=== PATIENT | female | born 1965 | race Hispanic/Latino ===

== ENCOUNTER → 2017-06-04 | Day surgery (SDC) | payer BC ==
[2017-06-03 08:52] LABS: BASOPHILS % 0.6 % (0.0-1.0); EOSINOPHILS # (AUTO) 0.1 (0.0-0.4); HEMATOCRIT 42.3 % (34.2-44.1); HEMOGLOBIN 14.2 g/dL (12.0-16.0); LYMPHOCYTES # (AUTO) 2.4 (1.0-3.2); LYMPHOCYTES % 51.1 % (18.0-39.1); MEAN CORPUSCULAR HEMOGLOBIN 29.2 pg (28-32); MEAN CORPUSCULAR HGB CONC 33.6 g/dL (31-35); MEAN CORPUSCULAR VOLUME 86.9 fL (81-99); MONOCYTES # (AUTO) 0.3 (0.2-0.8); NEUTROPHILS # (AUTO) 1.8 (2.1-6.9); NEUTROPHILS % 39.1 % (38.7-80.0); PLATELET COUNT 198 x10e3/uL (140-360); RED BLOOD COUNT 4.87 x10e6/uL (3.6-5.1); RED CELL DISTRIBUTION WIDTH 12.4 % (11.7-14.4)
[2017-06-03 09:12] LABS: ANION GAP 14.1 mmol/L (8-16); BLOOD UREA NITROGEN 13 mg/dL (7-26); BUN/CREATININE RATIO 16 (6-25); CALCIUM 9.5 mg/dL (8.4-10.2); CARBON DIOXIDE 27 mmol/L (22-29); CHLORIDE 105 mmol/L (98-107); CREATININE, SERUM 0.83 mg/dL (0.57-1.11); EST GLOMERULAR FILTRATION RATE > 60 ML/MIN (60-); GLUCOSE 97 mg/dL (74-118); POTASSIUM 4.1 mmol/L (3.5-5.1); SODIUM 142 mmol/L (136-145)
--- NOTE | 2017-06-03 09:13 | Diagnostic Imaging Report ---
PROCEDURE: X-RAY CHEST, TWO VIEWS COMPARISON: None. INDICATIONS: PRE OPERATIVE CHEST X-RAY FOR FOOT SURGERY FINDINGS: LUNGS: No consolidations or edema. PLEURA: No effusions or pneumothorax. HEART \T\ MEDIASTINUM: The heart is within normal size-limits. BONES \T\ SOFT TISSUES: No acute findings. CONCLUSION: No acute thoracic abnormality. Omi Wang D.O. Dictated by: Omi Wang D.O. on 06/03/2017 at 9:13 Electronically approved by: Omi Wang D.O. on 06/03/2017 at 9:13
[2017-06-03 10:43] LABS: EOSINOPHILS % (MANUAL) 3 % (0-7); LYMPHOCYTES % (MANUAL) 42 % (19-48); METAMYELOCYTES % (MANUAL) 5 % (0-0); MONOCYTES % (MANUAL) 7 % (3.4-9.0); NEUTROPHILS % (MANUAL) 34 % (40-74)
[2017-06-03 10:44] LABS: PLATELET ESTIMATE ADEQUATE; PLATELET MORPHOLOGY COMMENT FEW LARGE; RBC MORPHOLOGY COMMENT NORMAL
[~2017-06-04] MED LIST: BETAMETHASONE DISODIUM PHOS 6 MG/ML VIAL ONE; BUPIVACAINE HCL 0.5% 10ML MPF VIAL INJ ONE; CEFAZOLIN SOD 1 GM VIAL ONE; CITRACAL PO; DEXAMETHASONE SOD PHOS INJ 4 MG/ML VIAL ONE; FENTANYL CITRATE/PF 100MCG/2 ML INJ ONE; KETOROLAC TROMETHAMINE 30 MG/ML VIAL ONE; LIDOCAINE HCL 2% LOCAL INJ 5 ML SDV VIAL INJ ONE; LOVASTATIN40 MG PO; MIDAZOLAM HCL 2 MG/2 ML VIAL ONE; MULTIVITAMINS1 EAC7 PO; NEOSTIGMINE 1 MG/ML 10ML VIAL ONE; ONDANSETRON HCL INJ 2 MG/ML VIAL ONE; PROPOFOL IV EMULSION 10 MG/ML 20 ML VIAL ONE; SEVOFLURANE INHAL SOLN 250 ML PEN BTL ONE; VITAMIN D
--- OUTSIDE RECORDS SUMMARY | 2017-06-04 06:01 | XMS REPORT | Clinical Summary ---
Author Author [facility] Address Unknown Phone Unavailable Care Team Providers Care Supervisor Grips Name Role Phone Carmita Gonzalez MD PCP Allergies Active Allergy Reactions Severity Noted Date Comments Sulfa (Sulfonamide 08/19/2016 Antibiotics) Current Medications Prescription Sig. Disp. Refills Start End Date Status Date lovastatin (MEVACOR) 40 08/13/19 Active MG tablet 17 vitamin E 1000 UNIT Take 1,000 Units by mouth Active capsule daily. ASCORBIC ACID/VITAMIN Take by mouth. 10/11/19 Discontin E/BIOTIN (HAIR, SKIN, 17 ued NAILS WITH BIOTIN ORAL) Active Problems No known active problems Encounters Date Type Specialty Care Team Description 10/10/2016 Office Visit Gastroenterology Noel Warner MD Fatty liver (Primary Dx) 08/19/2016 Office Visit Gastroenterology Noel Warner MD NAFLD (nonalcoholic fatty liver disease) (Primary Dx); Fatty liver after 06/03/2016 Family History Medical History Relation Name Comments Breast cancer Paternal Socorro Late 80's Grandmother Ledesma Walter's esophagus Sister Belkis Benton Relation Name Status Comments Father Mother Alive Paternal Grandmother Socorro Ledesma Sister Belkis Benton Social History Tobacco Use Types Packs/Day Years Used Date Never Smoker Smokeless Tobacco: Never Used Alcohol Use Drinks/Week oz/Week Comments No Sex Assigned at Date Recorded Not on file Last Filed Vital Signs Vital Sign Reading Time Taken Blood Pressure 108/71 10/10/2016 2:21 PM CDT Pulse 90 10/10/2016 2:21 PM CDT Temperature 37.4 C (99.4 F) 10/10/2016 2:21 PM CDT Respiratory Rate 14 10/10/2016 2:21 PM CDT Oxygen Saturation - - Inhaled Oxygen - - Concentration Weight 75.8 kg (167 lb) 10/10/2016 2:21 PM CDT Height 157.5 cm (5' 2") 10/10/2016 2:21 PM CDT Body Mass Index 30.54 10/10/2016 2:21 PM CDT Plan of Treatment Health Maintenance Due Date Last Done Comments PAP SMEAR 11/28/1987 INFLUENZA VACCINE 11/04/2016 COLONOSCOPY 2016 MAMMOGRAM 2016 Results * BELKIS SCREEN W IFA W REFLEX TO TITER (08/19/2016 9:05 AM) Component Value Ref Range BELKIS screen NEGATIVE NEGATIVE Comment: BELKIS IFA is a first line screen for detecting the presence of up to approximately 150 autoantibodies in various autoimmune diseases. A negative BELKIS IFA result suggests BELKIS-associated autoimmune diseases are not present at this time. Visit Physician FAQs for interpretation of all antibodies in the [place], prevalence, and association with diseases at http://education.Numedeon/ faq/JOG793 Specimen Performing [facility] * Immunoglobulin A (08/19/2016 9:00 AM) Component Value Ref Range IgA 160 81 - 463 mg/dL [facility] * Tissue transglutaminase Ab, IgA (08/19/2016 9:00 AM) Component Value Ref Range Tissue transglutaminase <1 U/mL Ab, IgA Comment: <4 No Antibody Detected > OR=4 Antibody Detected [facility] * INTERPRETATION (REFLEX [facility]) (08/19/2016 9:00 AM) Component Value Ref Range Interpretation SEE NOTE Comment: No serological evidence of celiac disease. tTG IgA may normalize in individuals with celiac disease who maintain a gluten-free diet. Consider HLA DQ2 and DQ8 testing to rule out celiac disease. Celiac disease is extremely rare in the absence of DQ2 or DQ8. Specimen [facility]forming [facility] * PERSONAL FACTORS (08/19/2016 9:00 AM) Component Value Ref Range Height feet NOT GIVEN ft Height inches NOT GIVEN in Weight NOT GIVEN lbs Calculated BMI Not Calc Diabetic NOT GIVEN [facility] * INTERPRETATION (08/19/2016 9:00 AM) Component Value Ref Range Interpretation Comment: Not Calc: NAFLD Fibrosis Score was not calculated because required patient risk factors have not been supplied (e.g. age, weight, height, diabetes status)or because one or more of the tests were not performed. If fasting conditions were not met, use caution when interpreting the glucose test result and the NAFLD Fibrosis Score. Specimen Performing [facility] * NAFLD FIBROSIS SCORE (REFLEX) (08/19/2016 9:00 AM) Component Value Ref Range NAFLD fibrosis score Not Calc Specimen [facility] * Smooth Muscle Antibody with Reflex to Titer (08/19/2016 9:00 AM) Component Value Ref Range Smooth muscle Ab NEGATIVE NEGATIVE Specimen [facility] * Hepatitis C antibody (08/19/2016 9:00 AM) Component Value Ref Range Hepatitis C Ab NON-REACTIVE NON-REACTIVE Signal/cutoff 0.02 <1.00 Specimen [facility] * Alpha-1 antitrypsin level (08/19/2016 9:00 AM) Component Value Ref Range Alpha-1 antitrypsin 122 83 - 199 mg/dL Spec[facility] * Hepatitis A antibody IgM (08/19/2016 9:00 AM) Component Value Ref Range Hepatitis A IgM NON-REACTIVE NON-REACTIVE Spec[facility] * Hepatitis A antibody total (08/19/2016 9:00 AM) Component Value Ref Range Hepatitis A total Ab REACTIVE (A) NON-REACTIVE [facility] * Ceruloplasmin level (08/19/2016 9:00 AM) Component Value Ref Range Ceruloplasmin 21 18 - 53 mg/dL Spec[facility] * Hepatitis B core antibody IgM (08/19/2016 9:00 AM) Component Value Ref Range Hepatitis B core IgM NON-REACTIVE NON-REACTIVE Spec[facility] * Hepatitis B core antibody total (08/19/2016 9:00 AM) Component Value Ref Range Hepatitis B core total Ab NON-REACTIVE NON-REACTIVE [facility] * Anti mitochondria titer (08/19/2016 9:00 AM) Component Value Ref Range Mitochondrial Ab <20.0 U Comment: Reference Range: NEGATIVE: < OR=20.0 EQUIVOCAL: 20.1-24.9 POSITIVE: > OR=25.0 Specimen Performing [facility] * Hepatitis B surface antibody (08/19/2016 9:00 AM) Component Value Ref Range Hepatitis B surface Ab NON-REACTIVE NON-REACTIVE Spec[facility] * Hepatitis B surface antigen (08/19/2016 9:00 AM) Component Value Ref Range Hepatitis B surface Ag NON-REACTIVE NON-REACTIVE [facility] * Platelet count (08/19/2016 9:00 AM) Component Value Ref Range Platelet count 182 140 - 400 Thousand/uL Specimen [facility] * ALT (SGPT) (08/19/2016 9:00 AM) Component Value Ref Range ALT 22 6 - 29 U/L [facility] * AST (SGOT) (08/19/2016 9:00 AM) Component Value Ref Range AST 20 10 - 35 U/L [facility] * Glucose level (08/19/2016 9:00 AM) Component Value Ref Range Glucose 87 65 - 99 mg/dL Comment: Fasting reference interval [facility] * Albumin level (08/19/2016 9:00 AM) Component Value Ref Range Albumin, S 4.4 3.6 - 5.1 g/dL Specimen [facility] * Hepatic function panel (08/19/2016 9:00 AM) Component Value Ref Range Protein 6.8 6.1 - 8.1 g/dL Albumin, S 4.4 3.6 - 5.1 g/dL Globulin, total 2.4 1.9 - 3.7 g/dL (calc) Albumin/globulin ratio 1.8 1.0 - 2.5 (calc) Total bilirubin 0.5 0.2 - 1.2 mg/dL Bilirubin direct 0.1 < OR=0.2 mg/dL Bilirubin, indirect 0.4 0.2 - 1.2 mg/dL (calc) Alkaline phosphatase 64 33 - 115 U/L AST 20 10 - 35 U/L ALT 22 6 - 29 U/L Specimen Performing [facility] after 06/03/2016 Insurance Payer Benefit Subscriber ID Type Phone Address Plan / Group [facility] xxxxxxxxxxxxxxx PPO CHOICE PPO/ERIKA HARRIS PPO Home: [address] [place] [phone]
--- OUTSIDE RECORDS SUMMARY | 2017-06-04 06:01 | XMS REPORT ---
Author Author [facility] Address Unknown Phone Unavailable Care Team Providers Care Executive Officer Special Warfare Team Name Role Phone DAVINA FRENCH Unavailable Unavailable Problems This patient has no known problems. Allergies, Adverse Reactions, Alerts This patient has no known allergies or adverse reactions. Medications This patient has no known medications. Results Test Description Test Time Test Comments Text Results Atomic Results Result Comments CHEST 2 VIEWS [place] [address] Patient Name: NAHED FLOYD MR #: [id number] : 1965 Age/Sex: 51/F Req #: [id number] Adm Physician: Ordered by: DAVINA FRENCH DPM Report #: [id number] Location: OR Room/Bed: Procedure: [id number] DX/ CHEST 2 VIEWS Exam Date: 06/03/17 Exam Time: 0830 REPORT STATUS: Signed PROCEDURE: X-RAY CHEST, TWO VIEWS COMPARISON: None. INDICATIONS: PRE OPERATIVE CHEST X-RAY FOR FOOT SURGERY FINDINGS: LUNGS: No consolidations or edema. PLEURA: No effusions or pneumothorax. HEART T MEDIASTINUM: The heart is within normal size- limits. BONES T SOFT TISSUES: No acute findings. CONCLUSION : No acute thoracic abnormality. Karen Wang D.O. Dictated by: Karen Wang D.O. on 06/03/2017 at 9:13 Electronically approved by: Karen Wang D.O. on 06/03/2017 at 9:13 Dictated By: KAREN WANG DO 2 COPY TO: DAVINA FRENCH DPM
--- NOTE | 2017-06-04 09:17 | Operative Report ---
DATE OF PROCEDURE: June 04, 2017 PREOPERATIVE DIAGNOSES 1. Painful hallux valgus deformity, right foot. 2. Painful contracted hammertoes, digits 2nd through 5th digits, right foot. POSTOPERATIVE DIAGNOSES 1. Painful hallux valgus deformity, right foot. 2. Painful contracted hammertoes, digits 2nd through 5th digits, right foot. OPERATIVE PROCEDURES 1. Hari bunionectomy with screw fixation, right. 2. Arthroplasty 2nd with K-wire fixation, 2nd through 4th, right foot. 3. Arthroplasty 3rd with K-wire fixation, 2nd through 4th, right foot. 4. Arthroplasty 4th with K-wire fixation, 2nd through 4th, right foot. 5. Arthroplasty 5th with K-wire fixation, 2nd through 4th, right foot. 6. Intraoperative use of fluoroscopy. 7. Trigger point shot of cortisone. 8. Application of posterior splint. ANESTHESIA: General. HEMOSTASIS: Pneumatic thigh tourniquet at 350 mmHg. PROCEDURE IN DETAIL: Patient was taken into the operating room and placed on the operating table in the supine position. Following induction of general anesthesia by the anesthesiologist, Webril wraps were placed on the patient's right thigh followed by the application of a right thigh tourniquet. The right lower extremity was then prepped and draped in the usual aseptic manner. The following procedure was then performed: PROCEDURE #1: Hari bunionectomy with screw fixation, right foot. Attention was directed to the dorsomedial aspect of the 1st MPJ where a 6 cm linear incision was performed. Incision was deepened down to the joint capsule. Longitudinal capsulotomy was then performed exposing a dorsomedial exostosis of the 1st metatarsal head. Via the use of an oscillating saw, dorsomedial exostosis was excised from the operation site in toto. A V-osteotomy was then performed from medial to lateral. Capital fragment was then transitioned laterally. Upon adequate surgical and anatomical reduction utilizing proper AO technique, a 2 x 14 mm cortical screw in conjunction with a buried 0.045 K-wire was used to achieve stability at the osteotomy site. All redundant bone meal was excised via the use of an oscillating and rotating bur. PROCEDURES #2-5: Arthroplasty, 2nd through 5th digits with K-wire fixation, 2nd through 4th. Attention was then directed to the dorsal aspect of the above-mentioned toes around the proximal phalangeal joint where a 3 cm linear incision was performed. Incision was deepened down to the joint capsule. Transverse capsulotomy was then performed exposing the head of the proximal phalanxes. Via the use of an oscillating saw, the head of the proximal phalanxes were excised from the operation site in toto. Second through 4th toes were still noted to be contracted. So after properly and copiously flushing the areas with saline, a 0.045 K-wire was introduced up the metatarsophalangeal joint to achieve proper anatomic reduction. PROCEDURE #6: Intraoperative use of fluoroscopy was then used to make sure proper alignment and fixation was achieved. Closure was then obtained utilizing 3-0 Vicryl, 4-0 Vicryl and 4-0 nylon for capsule, subcutaneous tissue and skin respectively. PROCEDURE #7: Trigger point shot of cortisone was then given to the 1st and 4th interspace of the right foot. Then approximately 20 mL of 0.5% plain Marcaine were used to achieve local anesthesia of the above-mentioned surgical area. Sterile dressing was applied. Upon release of the thigh tourniquet, blood hyperemia was noted to be immediate to all digits of the patient's right foot. PROCEDURE #8: Application of posterior splint. A properly placed posterior splint was then applied keeping the foot at 90 degrees with respect to the leg to try to prevent any type of postop complications. Patient was then transferred from the OR to the recovery room with vital signs stable and neurovascular status intact. No intraoperative complications were encountered. Blood loss from the surgery was minimal. Patient to remain nonweightbearing with the aid of crutches. Keep her foot elevated, and is to apply an ice pack to the ankle joint area. Job#: [id number] MARGO
--- NOTE | 2017-06-04 10:00 | Diagnostic Imaging Report ---
PROCEDURE:FOOT RIGHT AP \T\ LAT TECHNIQUE:Portable AP and lateral views right foot INDICATION:Postoperative evaluation COMPARISON:None. FINDINGS: See conclusion. CONCLUSION: Expected postoperative sequela of bunionectomy, second, third and fourth toe hammertoe correction. No acute abnormality. Dictated by: Jamir Cline M.D. on 06/04/2017 at 10:00 Electronically approved by: Jamir Cline M.D. on 06/04/2017 at 10:00
== END | disposition home or self-care (01) ==
LOC: OR 05:59
PROVIDERS: ATTEND Podiatrist Foot Surgery
DX: M20.11 Hallux valgus (acquired), right foot (principal); M20.41 Other hammer toe(s) (acquired), right foot; E78.5 Hyperlipidemia, unspecified; Z01.810 Encounter for preprocedural cardiovascular examination; Z01.812 Encounter for preprocedural laboratory examination; Z01.818 Encounter for other preprocedural examination
CPT/HCPCS: 28285 ×4; 28296; 36415; 71046; 73620; 80048; 85025; 93005; J0690; J0720; J1100; J1885; J2001; J2250; J2405; J2710